=== PATIENT | male | born 1960 | race Caucasian/White ===

== ENCOUNTER 2016-06-27 14:01 | Observation (INO) | payer OTHER ==
--- NOTE | 2016-06-27 14:28 | CPEKG ---
Heart Rate: 62 RR Interval: 968 P-R Interval: 184 QRSD Interval: 104 QT Interval: 408 QTC Interval: 415 P Clarence: 69 QRS Clarence: -14 T Wave Clarence: 58 EKG Severity - ABNORMAL ECG - EKG Impression: SINUS RHYTHM EKG Impression: LATERAL INFARCT, OLD Electronically Signed By: Courtney Jarvis 27-Jun-2016 17:36:44
[2016-06-27 15:00] LABS: % IMMATURE GRANULYOCYTES 0.4 % (0.0-1.1); ABSOLUTE IMMATURE GRANULOCYTES 0.02 10^3/uL (0.00-0.10); ADD DIFF? NO; ADD MORPH? NO; ADD SCAN? NO; ATYPICAL LYMPHOCYTE FLAG 10 (0-99); FRAGMENT RBC FLAG 0 (0-99); HEMOGLOBIN 17.2 g/dL (13.7-17.5); LEFT SHIFT FLG 0 (0-99); LIPEMIA HEMOLYSIS FLAG 80 (0-99); MEAN CELL HEMOGLOBIN 28.8 pg (27.9-34.1); MEAN CELL HEMOGLOBIN CONCENTR. 33.7 g/dL (32.4-36.7); MEAN CELL VOLUME 85.4 fL (81.5-99.8); MEAN PLATELET VOLUME 9.7 fL (8.7-11.7); PLATELET CLUMPS FLAG 0 (0-99); PLATELET COUNT 265 10^3/uL (150-400); RED BLOOD CELL COUNT 5.97 10^6/uL (4.40-6.38); RED CELL DISTRIBUTION WIDTH 13.1 % (11.5-15.2)
[2016-06-27 15:06] LABS: ANION GAP 12 mEq/L (8-16); CALCIUM 10.3 mg/dL (8.5-10.4); CARBON DIOXIDE 24 mEq/l (22-31); CHLORIDE 103 mEq/L (97-110); GLOMERULAR FILTRATION RATE > 60; GLUCOSE 92 mg/dL (70-100); POTASSIUM 4.2 mEq/L (3.5-5.2); SODIUM 139 mEq/L (134-144)
[2016-06-27] MEDS ORDERED: ASPIRIN 81 MG CHEWABLE TAB PO ONE (15:10)
[2016-06-27 15:18] LABS: TROPONIN I < 0.012 ng/mL (0-0.034)
--- NOTE | 2016-06-27 15:48 | EDPHY ---
H & P Time Seen by Provider: 06/27/16 14:34 HPI/ROS: CHIEF COMPLAINT: Chest tightness HISTORY OF PRESENT ILLNESS: 56-year-old male presents to the emergency department by private vehicle with chest tightness. Patient states at 9 o' clock this morning he was sitting at his desk and developed abrupt onset of chest tightness. This was not accompanied by pain. He does not feel short of breath. However when the patient takes a big deep breath he does start coughing. He denies trauma. He has never had pain like this in the past. He did not take any medication at home. Since the pain continued she presented to urgent care who sent to the emergency department for evaluation. The patient has a history of hypertension and has been on losartan 25 mg daily for the last 12 years. He noted that his blood pressure was high over the last 1 week and he increased this medication taking it twice daily over the last 1 week. He recently traveled back [place] he [place] moved from. No other travel. No calf pain or swelling. No neck or back pain. REVIEW OF SYSTEMS: Constitutional: No fever, no chills. Eyes: No double or blurry vision. ENT: No sore throat. Respiratory: No cough, no shortness of breath. Cardiac: Chest tightness as above. Gastrointestinal: No abdominal pain, vomiting or diarrhea. Genitourinary: No dysuria. Musculoskeletal: No neck or back pain. Skin: No rashes. Neurological: No headache. Past Medical/Surgical History: Hypertension on losartan, ankylosing spondylitis Social History: , recently moved from [place] to [place] Smoking Status: Never smoked Physical Exam: General Appearance: Alert, no distress. Eyes: Pupils equal and round. Extraocular motions are all intact. ENT: Mouth: Mucous membranes moist. Respiratory: No wheezing, rhonchi, or rales, lungs are clear to auscultation. Unable to reproduce pain in his chest with palpation to the anterior aspect of the chest. No palpable crepitus or other bony abnormality. Cardiovascular: Regular rate and rhythm. Gastrointestinal: Abdomen is soft and nontender, no masses, no rebound or guarding, bowel sounds normal. Neurological: Alert and oriented x 3, cranial nerves II through XII grossly intact Skin: Warm and dry, no rashes. Musculoskeletal: Nontender to palpate along the cervical, thoracic or lumbar spine. Neck is supple. Extremities: Full range of motion and no peripheral edema. Psychiatric: Patient is oriented X 3, there is no agitation. Constitutional: Initial Vital Signs Temperature (C) 36.6 C 06/27/16 14:09 Heart Rate 74 06/27/16 14:09 Respiratory Rate 16 06/27/16 14:09 Blood Pressure 147/97 H 06/27/16 14:09 O2 Sat (%) 95 06/27/16 14:09 O2 Delivery Mode Room Air Allergies/Adverse Reactions: nut - unspecified Allergy (Severe, Verified 06/27/16 14:13) Hives Home Medications: Medication Instructions Recorded Celebrex 06/27/16 Losartan Potassium 06/27/16 Medical Decision Making - Diagnostics Imaging: Chest x-ray reveals no acute pulmonary disease. This is reviewed by myself the PAC system. Radiology interpretation to follow. ED Course/Re-evaluation: 56-year-old male presents to the emergency department with chest tightness. His vital signs are stable. He has a history of hypertension. Patient was given 4 baby aspirin in the emergency department. The case was discussed with Dr. Courtney Jarvis, secondary supervising physician, who did not directly evaluate the patient but agrees with treatment and plan. Laboratory studies including troponin were normal. Chest x-ray is unremarkable. D-dimer is normal. I doubt this patient has a pulmonary embolism. Because the patient continues to have ongoing chest tightness, I recommended admission to the [facility] for further evaluation and serial troponins and EKGs. The patient will be admitted to Dr. Spencer leung. Dr. Quinones recommended given the patient 1 sublingual nitroglycerin. Differential Diagnosis: Chest pain including but not limited to myocardial ischemia, pulmonary embolus, chest wall pain, pleural inflammation and pulmonary infectious causes. - Data Points Laboratory Results: Laboratory Results 06/27/16 14:30 06/27/16 14:30 06/27/16 06/27/16 06/27/16 14:30 14:30 14:30 WBC 5.36 10^3/uL 10^3/uL (3.80-9.50) RBC 5.97 10^6/uL 10^6/uL (4.40-6.38) Hgb 17.2 g/dL g/dL (13.7-17.5) Hct 51.0 % % (40.0-51.0) MCV 85.4 fL fL (81.5-99.8) MCH 28.8 pg pg (27.9-34.1) MCHC 33.7 g/dL g/dL (32.4-36.7) RDW 13.1 % % (11.5-15.2) Plt Count 265 10^3/uL 10^3/uL (150-400) MPV 9.7 fL fL (8.7-11.7) Neut % (Auto) 60.3 % % (39.3-74.2) Lymph % (Auto) 29.5 % % (15.0-45.0) [place] % (Auto) 7.6 % % (4.5-13.0) Eos % (Auto) 1.5 % % (0.6-7.6) Baso % (Auto) 0.7 % % (0.3-1.7) Nucleat RBC Rel Count 0.0 % % (0.0-0.2) Absolute Neuts (auto) 3.23 10^3/uL 10^3/uL (1.70-6.50) Absolute Lymphs (auto) 1.58 10^3/uL 10^3/uL (1.00-3.00) Absolute Monos (auto) 0.41 10^3/uL 10^3/uL (0.30-0.80) Absolute Eos (auto) 0.08 10^3/uL 10^3/uL (0.03-0.40) Absolute Basos (auto) 0.04 10^3/uL 10^3/uL (0.02-0.10) Absolute Nucleated RBC 0.00 10^3/uL 10^3/uL (0-0.01) Immature Gran % 0.4 % % (0.0-1.1) Immature Gran # 0.02 10^3/uL 10^3/uL (0.00-0.10) D-Dimer < 0.27 ug/mLFEU ug/mLFEU (0.00-0.50) Sodium 139 mEq/L mEq/L (134-144) Potassium 4.2 mEq/L mEq/L (3.5-5.2) Chloride 103 mEq/L mEq/L (97-110) Carbon Dioxide 24 mEq/l mEq/l (22-31) Anion Gap 12 mEq/L mEq/L (8-16) BUN 18 mg/dL mg/dL (7-23) Creatinine 1.0 mg/dL mg/dL (0.7-1.3) Estimated GFR > 60 Glucose 92 mg/dL mg/dL (70-100) Calcium 10.3 mg/dL mg/dL (8.5-10.4) Troponin I < 0.012 ng/mL ng/mL (0-0.034) Medications Given: Discontinued Medications Aspirin (Aspirin) 324 mg PO EDNOW ONE Stop: 06/27/16 15:11 Last Admin: 06/27/16 15:23 Dose: 324 mg Departure - Departure Disposition: [facility] Inpatient Acute Clinical Impression: Chest pain Qualifiers: Chest pain type: unspecified Qualified Code(s): R07.9 - Chest pain, unspecified Condition: Good
[2016-06-27] MEDS ORDERED: NITROGLYCERIN 0.4 MG BTL SL ONE ×2 (16:00)
[2016-06-27] MEDS ORDERED: ACETAMINOPHEN 325 MG TAB PO PRN (16:26)
[2016-06-27] MEDS ORDERED: ONDANSETRON DISINTEGRATING 4 MG TAB PO PRN (16:26)
[2016-06-27] MEDS ORDERED: NITROGLYCERIN 0.4 MG BTL SL PRN (16:26)
[2016-06-27] MEDS ORDERED: ONDANSETRON 4 MG/2 ML VIAL IVP PRN (16:26)
[2016-06-27] MEDS ORDERED: MAALOX/LIDO/HYOSC GI COCKTAIL 55 ML BOTTLE PO ONE (16:56)
--- NOTE | 2016-06-27 17:00 | PDGENHP ---
History and Physical - Chief Complaint Acute chest pain - History of Present Illness Primary care provider: Dr. Beatty HPI: 56-year-old male presenting with acute chest pain characterized as a pressure located in his mid sternal area with associated nonproductive cough. Onset of symptoms was this morning and it occurred at rest. Duration has been persistent thereafter. Symptoms have not been alleviated with aspirin or sublingual nitroglycerin. He reports no recent reduction in exercise tolerance , he admits that he has not been particularly physically active recently. He does report that he had had a similar symptom approximately year ago when he had a "chest cold". His use of scheduled Celebrex has been approximately every other day he does not believe that he is taking additional nonsteroidal anti- inflammatory medications in between. He did check his blood pressure on the day of this presentation after he noticed his symptoms and his systolic blood pressure was reportedly in the 150s. He has recently noted elevation in his systolic blood pressures and he has increased his losartan to 25 mg twice daily. History Information - Allergies/Home Medication List Allergies/Adverse Reactions: nut - unspecified Allergy (Severe, Verified 06/27/16 14:13) Hives Home Medications: Losartan Potassium [Cozaar 25 mg (*)] 25 mg PO BID 06/27/16 [Last Taken 06/27/16 ] celeCOXIB [Celebrex (*)] 200 mg PO DAILY PRN 06/27/16 [Last Taken 06/25/16] I have personally reviewed and updated: family history, medical history, social history, surgical history - Past Medical History Additional medical history: Ankylosing spondylitis chronically on NSAIDs. Hypertension - Surgical History Reports: no pertinent surgical hx - Family History Additional family history: No family history of coronary artery disease - Social History Smoking Status: Never smoked Alcohol Use: Occasionally Drug Use: None Additional social history: Independent in his ADLs, recently relocated from [place] Review of Systems ROS: 10pt was reviewed & negative except for what was stated in HPI & below Cardiac: Reports: chest pain Respiratory: Reports: cough Physical Exam Temp Pulse Resp BP Pulse Ox 36.6 C 63 16 121/95 H 97 06/27/16 14:09 06/27/16 16:00 06/27/16 16:00 06/27/16 16:00 06/27/16 16:00 Constitutional: no apparent distress, appears nourished, not in pain Eyes: PERRL, anicteric sclera, EOMI Ears, Nose, Mouth, Throat: moist mucous membranes, hearing normal, ears appear normal, no oral mucosal ulcers Cardiovascular: regular rate and rhythym, no murmur, rub, or gallop, No edema Gastrointestinal: normoactive bowel sounds, soft, non-tender abdomen, no palpable masses Musculoskeletal: other (Full range of motion bilateral shoulders without any pain, no tenderness to palpation over the anterior pectoralis muscles) Neurologic: AAOx3, sensation intact bilaterally, No weakness Psychiatric: interacting appropriately, not anxious, not encephalopathic, thought process linear Lab Data & Imaging Review 06/27/16 14:30 06/27/16 14:30 WBC 5.36 10^3/uL (3.80-9.50) 06/27/16 14:30 RBC 5.97 10^6/uL (4.40-6.38) 06/27/16 14:30 Hgb 17.2 g/dL (13.7-17.5) 06/27/16 14:30 Hct 51.0 % (40.0-51.0) 06/27/16 14:30 MCV 85.4 fL (81.5-99.8) 06/27/16 14:30 MCH 28.8 pg (27.9-34.1) 06/27/16 14:30 MCHC 33.7 g/dL (32.4-36.7) 06/27/16 14:30 RDW 13.1 % (11.5-15.2) 06/27/16 14:30 Plt Count 265 10^3/uL (150-400) 06/27/16 14:30 MPV 9.7 fL (8.7-11.7) 06/27/16 14:30 Neut % (Auto) 60.3 % (39.3-74.2) 06/27/16 14:30 Lymph % (Auto) 29.5 % (15.0-45.0) 06/27/16 14:30 [place] % (Auto) 7.6 % (4.5-13.0) 06/27/16 14:30 Eos % (Auto) 1.5 % (0.6-7.6) 06/27/16 14:30 Baso % (Auto) 0.7 % (0.3-1.7) 06/27/16 14:30 Nucleat RBC Rel Count 0.0 % (0.0-0.2) 06/27/16 14:30 Absolute Neuts (auto) 3.23 10^3/uL (1.70-6.50) 06/27/16 14:30 Absolute Lymphs (auto) 1.58 10^3/uL (1.00-3.00) 06/27/16 14:30 Absolute Monos (auto) 0.41 10^3/uL (0.30-0.80) 06/27/16 14:30 Absolute Eos (auto) 0.08 10^3/uL (0.03-0.40) 06/27/16 14:30 Absolute Basos (auto) 0.04 10^3/uL (0.02-0.10) 06/27/16 14:30 Absolute Nucleated RBC 0.00 10^3/uL (0-0.01) 06/27/16 14:30 Immature Gran % 0.4 % (0.0-1.1) 06/27/16 14:30 Immature Gran # 0.02 10^3/uL (0.00-0.10) 06/27/16 14:30 D-Dimer < 0.27 ug/mLFEU (0.00-0.50) 06/27/16 14:30 Sodium 139 mEq/L (134-144) 06/27/16 14:30 Potassium 4.2 mEq/L (3.5-5.2) 06/27/16 14:30 Chloride 103 mEq/L (97-110) 06/27/16 14:30 Carbon Dioxide 24 mEq/l (22-31) 06/27/16 14:30 Anion Gap 12 mEq/L (8-16) 06/27/16 14:30 BUN 18 mg/dL (7-23) 06/27/16 14:30 Creatinine 1.0 mg/dL (0.7-1.3) 06/27/16 14:30 Estimated GFR > 60 06/27/16 14:30 Glucose 92 mg/dL (70-100) 06/27/16 14:30 Calcium 10.3 mg/dL (8.5-10.4) 06/27/16 14:30 Troponin I < 0.012 ng/mL (0-0.034) 06/27/16 14:30 Visualized and Interpreted Chest x-ray results: Yes Chest X-Ray results: no infiltrate Visualized and Interpreted EKG results: Yes EKG additional interpertation: Right bundle branch block Assessment & Plan Assessment: 56-year-old male presents with acute chest pain Plan: 1. Chest pain. Acute, new problem this provider, further workup indicated. Potential etiologies include acute coronary syndrome versus GERD versus pleuritis. -cycle cardiac enzymes -monitor on telemetry -EKGs if chest discomfort worsening -sublingual nitroglycerin has not produced identifiable benefit, give GI cocktail and PPI at this time and gauge response -empirically received aspirin in the emergency department, continue full-dose daily -give 12.5 mg oral metoprolol tartrate if systolic blood pressure greater than 160 -if cardiac enzymes negative, get treadmill nuclear stress test given his underlying abnormal EKG -pulmonary embolism ruled out with negative D-dimer -hold on statin, patient's outside records including lab draw indicate LDL of 103, goal less than 100 if has identifiable coronary disease 2. Chronic hypertension. Continue home losartan 25 mg twice daily Diet. Cardiac, NPO in the morning Prophylaxis. Low risk patient, SCDs Code. Full Disposition. Anticipated discharge 05/31/2016, pending further workup as outlined above. I have discussed patient's presentation with emergency department provider Mayra Jones, she has agreed with me that the [facility] is appropriate for this patient.
[2016-06-27] MEDS: PANTOPRAZOLE SODIUM 40 MG TAB PO SCH (19:17)
[2016-06-27] MEDS: LOSARTAN POTASSIUM 25 MG TAB PO SCH (21:49)
[2016-06-28 05:10] LABS: % IMMATURE GRANULYOCYTES 0.3 % (0.0-1.1); ABSOLUTE IMMATURE GRANULOCYTES 0.02 10^3/uL (0.00-0.10); ADD DIFF? NO; ADD MORPH? NO; ADD SCAN? NO; ATYPICAL LYMPHOCYTE FLAG 10 (0-99); FRAGMENT RBC FLAG 0 (0-99); HEMATOCRIT 47.5 % (40.0-51.0); LEFT SHIFT FLG 0 (0-99); LIPEMIA HEMOLYSIS FLAG 80 (0-99); MEAN CELL HEMOGLOBIN 29.3 pg (27.9-34.1); MEAN CELL HEMOGLOBIN CONCENTR. 33.7 g/dL (32.4-36.7); MEAN PLATELET VOLUME 9.8 fL (8.7-11.7); PLATELET CLUMPS FLAG 0 (0-99); PLATELET COUNT 237 10^3/uL (150-400); RED BLOOD CELL COUNT 5.46 10^6/uL (4.40-6.38); RED CELL DISTRIBUTION WIDTH 13.2 % (11.5-15.2)
[2016-06-28 05:27] LABS: ALANINE AMINOTRANSFERASE 29 IU/L (21-72); ALBUMIN 3.8 g/dL (3.5-5.0); ALKALINE PHOSPHATASE 51 IU/L (38-126); ANION GAP 9 mEq/L (8-16); ASPARTATE AMINOTRANSFERASE 26 IU/L (17-59); BILIRUBIN,TOTAL 0.8 mg/dL (0.1-1.4); CALCIUM 9.7 mg/dL (8.5-10.4); CARBON DIOXIDE 24 mEq/l (22-31); CHLORIDE 105 mEq/L (97-110); CREATININE 1.1 mg/dL (0.7-1.3); GLOMERULAR FILTRATION RATE > 60; GLUCOSE 86 mg/dL (70-100); POTASSIUM 4.7 mEq/L (3.5-5.2); SODIUM 138 mEq/L (134-144); TOTAL PROTEIN 7.2 g/dL (6.3-8.2)
[2016-06-28 05:37] LABS: TROPONIN I 0.013 ng/mL (0-0.034)
[2016-06-28 08:03] VITALS: RESP 18
[2016-06-28] MEDS ORDERED: ASPIRIN 325 MG TAB PO SCH (09:00)
[2016-06-28] MEDS: LOSARTAN POTASSIUM 25 MG TAB PO SCH (10:16)
[2016-06-28] MEDS: PANTOPRAZOLE SODIUM 40 MG TAB PO SCH (10:16)
--- NOTE | 2016-06-28 11:45 | CPR ---
[f rep st] NONINVASIVE CARDIAC PROCEDURE REPORT DATE OF PROCEDURE: 06/28/2016 PROCEDURE: Exercise nuclear stress test. INDICATION: The patient is a 56-year-old male with a history of hypertension, who presented to the hospital with 1 episode of chest pressure while seated. He also noted that his blood pressure had i ncreased since moving from [place] to [place], [place]. He was getting pressures of 160/100. DESCRIPTION OF PROCEDURE: Consent was obtained, and the patient was placed on continuous telemetry. His resting EKG reveals sinus bradycardia at a rate of 54 with ND interval of 184, QRS duration 10 2, and a QTc of 401. There are no ST-T wave changes to suggest ischemia. The patient exercised on the treadmill for 12 minutes without any associated symptoms. He reached a target heart rate of 151 beats per minute which was 91% of his age-predicted maximum heart rate. He remained in normal sinu s rhythm throughout the study without any ST-T wave changes to suggest ischemia. His blood pressure at rest was 110/88 and increased appropriately, peaking at 182/88. His blood pressure returned to baseline within 5 minutes of recovery. PLAN: Normal exercise treadmill test. Await nuclear images. /[id number]/MODL
[2016-06-28 12:26] VITALS: BP 136/84; PULSE 70; TEMP 98.3; O2SAT 95
--- NOTE | 2016-06-28 14:16 | GDS ---
[f rep st] DISCHARGE SUMMARY DISCHARGE DIAGNOSES: 1. Noncardiac chest pain. 2. Hypertension. HISTORY: This is a 56-year-old male with history of hypertension. His blood pressure has been incr easing slowly. He came in yesterday with chest tightness. HOSPITAL COURSE: Patient was admitted to the hospital. His cardiac enzymes are negative x3. He un derwent stress testing the next morning, which was negative. Chest pain is resolved. His blood pre ssure actually looks fairly good. He will be discharged home on his previous medication. /[id number]/MODL
== END 2016-06-28 15:18 | disposition home or self-care (01) ==
LOC: F2W 17:30
PROVIDERS: ADMIT Internal Medicine; ATTEND Internal Medicine
DX: R07.89 Other chest pain (principal); I10 Essential (primary) hypertension
CPT/HCPCS: 71020; 78452; 93005; 99285; A9500; G0378

== ENCOUNTER → 2017-05-15 | Outpatient (CLI) | payer OTHER | LOC: FIMAGING 15:21 | PROVIDERS: ATTEND Orthopaedic Surgery | DX: M25.551 Pain in right hip (principal); M25.552 Pain in left hip ==